=== PATIENT | male | born 1965 | race African-American/Black ===

== ENCOUNTER 2019-03-25 18:50 | Emergency (ER) | payer OTHER ==
[~2019-03-25] VITALS: Ht 177.8 cm; Wt 108.9 kg
[2019-03-25] MEDS ORDERED: AMARYL2 MG PO (19:11)
[2019-03-25] MEDS ORDERED: NORVASC5 MG PO (19:11)
[2019-03-25] MEDS ORDERED: COREG25 MG PO (19:11)
[2019-03-25] MEDS ORDERED: PRAVACHOL40 MG PO (19:12)
[2019-03-25 19:57] LABS: ABSOLUTE NEUTROPHILS 3.5 thou/uL (1.4-8.2); BASOPHILS 0.6 % (0.0-2.0); EOSINOPHILS 2.4 % (0.0-3.0); HEMATOCRIT 28.4 % (42.0-52.0); HEMOGLOBIN 9.3 gm/dL (14.0-18.0); LYMPHOCYTES 17.5 % (24.0-44.0); MCH 28.5 pg (26.0-34.0); MCHC 32.8 g/dL (28.0-37.0); MCV 86.9 fL (80.0-100.0); MONOCYTES 9.3 % (1.0-8.0); POLYS 70.2 % (36.0-66.0); RBC 3.27 mil/uL (4.50-6.00)
[2019-03-25 20:00] LABS: CALCIUM 9.2 mg/dL (8.5-10.1); CREATININE 20.9 mg/dL (0.7-1.3); POTASSIUM 5.4 mmol/L (3.5-5.1)
[2019-03-25 20:04] LABS: TOTAL BILIRUBIN 0.8 mg/dL (<0.1-1.0); TOTAL PROTEIN 8.5 g/dL (6.4-8.2)
[2019-03-25 20:21] LABS: LARGE PLATELETS OCCASIONAL
[2019-03-25 20:22] LABS: PLATELET COUNT 89 thou/uL (150-400)
[2019-03-25 21:05] VITALS: BP 178/93
--- NOTE | 2019-03-26 07:51 | EKG ---
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: : 1965 Requested By: Jeff Suarez Order Number: [id number] MD: Tolu Miller Measurements Intervals [place] Rate: 77 P: 56 OR: 164 QRS: 17 QRSD: 167 T: 25 QT: 458 QTc: 519 Interpretive Statements Sinus rhythm Right bundle branch block No previous ECG available for comparison Electronically Signed On 03-26-2019 7:51:09 CDT by Tolu Miller [email or web address] ��������������������������������������������� <ELECTRONICALLY SIGNED> ���������������������������������������� By: Tolu Miller MD, [facility] ��������������������������������������������� 03/26/19 [id number] 16 Tolu Miller MD, FACC /EPI
== END 2019-03-25 21:05 | disposition home or self-care (01) ==
LOC: ER 18:50
PROVIDERS: Emergency Medicine
DX: I12.0 Hypertensive chronic kidney disease with stage 5 chronic kidney disease or end stage renal disease (principal); E11.22 Type 2 diabetes mellitus with diabetic chronic kidney disease; N18.6 End stage renal disease; Z99.2 Dependence on renal dialysis; I13.2 Hypertensive heart and chronic kidney disease with heart failure and with stage 5 chronic kidney disease, or end stage renal disease; I50.9 Heart failure, unspecified; R06.02 Shortness of breath